=== PATIENT | female | born 1980 | race Caucasian/White ===

== ENCOUNTER 2019-03-13 22:07 | Inpatient (IN) | payer MEDICAID ==
[~2019-03-13] VITALS: Ht 172.7 cm; Wt 101.2 kg
[2019-03-13 22:52] VITALS: BP 133/76; PULSE 89; RESP 18
[2019-03-13] MEDS ORDERED: LACTATED RINGER'S 1,000 ML IV PRN (22:53)
[2019-03-13] MEDS ORDERED: LACTATED RINGER'S 1,000 ML IV SCH (22:53)
[2019-03-13] MEDS ORDERED: OXYTOCIN 30 UNITS/LR 500 ML IV PRN (23:00)
[2019-03-13] MEDS ORDERED: LIDOCAINE 1% (MPF) 30 ML INJ INJ PRN (23:00)
[2019-03-13] MEDS ORDERED: CARBOPROST 250 MCG INJ IM PRN (23:00)
[2019-03-13] MEDS ORDERED: METHYLERGONOVINE 0.2 MG INJ IM PRN (23:00)
[2019-03-13] MEDS ORDERED: MISOPROSTOL 200 MCG TAB PR PRN (23:00)
[2019-03-13] MEDS ORDERED: OXYTOCIN 30 UNITS/LR 500 ML IV SCH (23:00)
[2019-03-13] MEDS ORDERED: BUTORPHANOL 2 MG INJ IV PRN ×2 (23:00)
[2019-03-13] MEDS ORDERED: MINERAL OIL LIGHT 10 ML VIAL TOP ONE (23:00)
[2019-03-13] MEDS ORDERED: IBUPROFEN 600 MG TAB PO PRN (23:00)
--- NOTE | 2019-03-13 23:49 | TRIAGE ---
OB Triage Datetime Report Generated by CPN: 03/13/2019 23:49 Datetime: 03/13/2019 22:46 Stage of : OB Triage Labor Evaluation Frequency: 2-5 Monitor Mode: External Duration (sec)2399: 60 Quality: Moderate Pattern: Normal: <= 5 Contractions in 10 Minutes Resting Tone Hatley: Relaxed Heart Rate FHR Baseline Rate: 130 Monitor Mode: External US FHR Baseline Changes: No Baseline Change Variability: Moderate 6-25 bpm Accelerations: 15X15 Decelerations: None Category: Category I Pain Assessment Pain Scale: 6 Pain Presence: Intermittent Pain Type: Contraction Pain Location: Abdomen Vaginal Exam Dilatation (cms): 4.0 Effacement (%): 70 Station: -2 Exam By: Nicole Tineo Membrane Status: Intact Vaginal Bleeding: Scant Cervix, Consistency: Soft Cervix, Position: Posterior Presentation 'A': Cephalic Datetime: 03/13/2019 22:25 Time of Arrival: 03/13/2019 21:57 EGA: 40.0 Arrived By: Ambulatory Arrived From: Home Chief Complaint: c/o ucs Movement: Present Contractions: Irregular Time Contractions Began: 03/13/2019 20:00 Contractions: q30 Rupture of Membranes: Denies Vaginal Bleeding: None Vaginal Discharge: Denies Recent Sexual Intercouse: Denies Abdominal Trauma: Not Applicable Patient Complaints: Contractions Time Provider Notified: 03/13/2019 22:50 Provider Notified: Dr Yanes Initial Plan: VIDAL SINGH
--- NOTE | 2019-03-14 00:45 | HP ---
Date/Time of Note Date/Time of Note DATE: 03/14/19 TIME: 00:39 OB - History Hx of Present Free Text/Dictation late entry note for exam done for 03/13/2019 Chief Complaint: labor pain Estimated Due Date: Mar 13, 2019 : 7 Para: 4 Spontaneous : 2 Therapeutic : 0 Other Concerns: 38-year-old G7, P4 with IUP at 40 weeks with care with [facility] presented with a complaint of uterine contractions and was noted to be in labor. She denies any leaking of fluid, vaginal bleeding or decreased movement. Patient declines having epidural. Antepartum course was complicated by history of hemophilia in 1 of her children. Child is a boy. Patient reports family history of hemophilia in her grandfather and cousin. Patient reports her kids never had any blood transfusion but has easy bruising. with a new partner. Patient had not done genetic testing or carrier screening testing of her partner. Current has a male fetus. She was noted to have regular contractions every 3 to 4 minutes. NST was category 1. Past Family/Social History * Past Medical, Surgical, Family and Obstetric Histories reviewed from chart. Blood Type: O+ Rubella: unknown RPR/VDRL: Negative GBS Status: Negative HBsAG: Negative OB Admission Exam Vital Signs Vital Signs Vital Signs Date Temp Pulse Resp B/P (MAP) Pulse Ox O2 O2 Flow FiO2 Time Delivery Rate 03/13/19 98.3 89 18 133/76 Room Air 22:52 (95) Physical Exam HEENT: WNL Heart: Rhythm Normal Lungs: Clear Abdomen: WNL Reflexes: Normal Cervical Dilatation: 4cm Effacement: 75% Station: -2 Membranes: Intact Heart Rate: 120's Accelerations: Accelerations Present Decelerations: No Decelerations Varibility: Moderate Contractions on Admission: < 5 Minutes Apart Intensity: Firm Last 72 hours Lab Results CBC & BMP 03/14/19 00:03 OB Assessment/Plan Reason for admission: active labor Other Assessment: IUP at 40 weeks Active labor GBS negative History of hemophilia and 1 of her children as well as family history of hemophilia in her grandfather and cousin. with a new partner. Partner has not done any carrier screening test. Baby is a male Patient declined epidural. Desires only IV pain medication if needed Admit the patient to labor and delivery Follow-up of labor care and anticipate . Clothes Model will be notified about family history of hemophilia Baby is male. Consider less invasive procedure. Caution during delivery avoiding of using FSE of vaccum. Anticipate Plan Of care discussed with RN and with the patient RUFUS BROWN MD Mar 14, 2019 00:45
[2019-03-14] MEDS: OXYTOCIN 30 UNITS/LR 500 ML IV SCH ×2 (06:22→06:27)
[2019-03-14] MEDS ORDERED: OXYTOCIN 30 UNITS/LR 500 ML IV SCH (06:44)
--- NOTE | 2019-03-14 06:44 | LDN ---
Date/Time of Note Date/Time of Note DATE: 03/14/19 TIME: 06:42 Delivery Summary March 14, 2019 Weeks of Gestation 40 weeks and 1 day Placenta Delivered: Spontaneously Meconium: none Episiotomy: No Indication for episiotomy N.A Perineal laceration: 1 Laceration repair: first degree perineal laceration repaired using 3-0 chromic Anesthesia type: None Estimated blood loss: 400 Sponge & Needle done & correct: Yes All needle counts correct: Yes Any foreign bodies felt in the: No Infant Delivery Information Sex Sex: male Apgars 1 Minute: 8 5 Minute: 9 Suctioning Nose & mouth suctioned at abrahan: Yes Delee suction performed: Yes Umbilical Cord Umbilical cord with: 3 Vessels Cord presentations: nuchal cord Nuchal cord present X: 1 Cord Blood was obtained: Yes Mother & Baby Disposition Disposition Placenta delvered complete. Fundus was firm at the end of the delivery Hemostasis complete Patient tolerated the procedure well No complication RUFUS BROWN MD Mar 14, 2019 06:44
[2019-03-14] MEDS ORDERED: OXYTOCIN 30 UNITS/LR 500 ML IV PRN (07:00)
[2019-03-14] MEDS ORDERED: NACL 0.9% 3 ML SYG IV SCH (07:00)
[2019-03-14] MEDS ORDERED: METHYLERGONOVINE 0.2 MG INJ IM PRN (07:00)
[2019-03-14] MEDS ORDERED: MISOPROSTOL 200 MCG TAB PR PRN (07:00)
[2019-03-14] MEDS ORDERED: ZOLPIDEM 5 MG TAB PO PRN (07:00)
[2019-03-14] MEDS: IBUPROFEN 600 MG TAB PO SCH ×4 (07:00→23:38)
[2019-03-14] MEDS ORDERED: HYDROCODONE/APAP (5/325) TAB PO PRN (07:00)
[2019-03-14] MEDS ORDERED: WITCH HAZEL/GLYCERIN PAD PR PRN (07:00)
[2019-03-14] MEDS ORDERED: LANOLIN HPA 1 PKT TOP PRN (07:00)
[2019-03-14] MEDS ORDERED: CARBOPROST 250 MCG INJ IM PRN (07:00)
[2019-03-14] MEDS ORDERED: ONDANSETRON 4 MG INJ IV PRN (07:00)
[2019-03-14] MEDS ORDERED: DIPHENHYDRAMINE 25 MG CAP PO PRN (07:00)
[2019-03-14 08:00] VITALS: BP 105/50; PULSE 76; RESP 18
[2019-03-14] MEDS: SENNA/DOCUSATE NA (8.6MG/50MG) TAB PO SCH ×2 (09:52→23:38)
[2019-03-14 12:46] VITALS: BP 116/67; PULSE 74; RESP 18
[2019-03-14 16:00] VITALS: BP 106/61; PULSE 74; RESP 16
[2019-03-14 20:00] VITALS: BP 109/59; PULSE 83; RESP 18
[2019-03-15 04:00] VITALS: BP 112/56; PULSE 76; RESP 18
[2019-03-15] MEDS: IBUPROFEN 600 MG TAB PO SCH ×3 (06:02→17:38)
[2019-03-15 08:00] VITALS: BP 114/61; PULSE 79; RESP 18
[2019-03-15] MEDS: SENNA/DOCUSATE NA (8.6MG/50MG) TAB PO SCH ×2 (08:50→21:36)
[2019-03-15 16:00] VITALS: BP 107/54; PULSE 71; RESP 16
--- NOTE | 2019-03-15 17:01 | DS ---
Date/Time of Note Date/Time of Note DATE: 03/15/19 TIME: 17:00 Obstetrical Discharge Record Final Diagnosis Final Diagnosis: Term delivered Vaginal Delivery Obstetrical Delivery: Spontaneous Complications Augmentation: No Induction: No Rupture of Membranes: No Condition on Discharge Physical Assessment Voiding: Yes Bowel Movement: Yes Breast: Soft, non-tender, Filling Fundus: Firm Abdomen and Incision: soft, not tender Calf Tenderness: No Patient Condition: Good VIRY ANTOINE MD Mar 15, 2019 17:01
[2019-03-15 20:30] VITALS: BP 132/76; PULSE 81; RESP 20
[2019-03-16] MEDS: IBUPROFEN 600 MG TAB PO SCH ×3 (00:44→12:15)
[2019-03-16 04:15] VITALS: BP 116/73; PULSE 76; RESP 18
[2019-03-16 08:00] VITALS: BP 116/67; PULSE 70; RESP 18
[2019-03-16] MEDS: SENNA/DOCUSATE NA (8.6MG/50MG) TAB PO SCH (08:35)
[2019-03-16] MEDS ORDERED: VARICELLA VACCINE LIVE/PF 1,350 UNIT/0.5 ML ML SC* ONE (09:00)
[2019-03-16] MEDS ORDERED: MEASLES,MUMPS,RUBELLA VACCINE INJ SC* ONE (09:00)
[2019-03-16] MEDS ORDERED: DIPHTH/TET/ACEL PERTUSS (ADULT) 0.5 ML VIAL IM* ONE (09:00)
--- NOTE | 2019-03-17 16:33 | DELSUM ---
Delivery Summary A-C Datetime Report Generated by CPN: 03/17/2019 16:32 DELIVERY PERSONNEL Butter Liquefier: Ricafrente, Sparkle MATERNAL INFORMATION Delivery Anesthesia: Local Medications in Delivery: LR 500 + 30 units pitocin Delivery QBL (ml): 400 Placenta Cultured: No Maternal Complications: None LABOR SUMMARY EDC: 03/13/2019 00:00 No. Babies in Womb: 1 Attempted: No Labor Anesthesia: IV Sedation LABOR INFORMATION Reason for Induction: Not Applicable Onset of Labor: 03/13/2019 20:00 Complete Dilatation: 03/14/2019 06:01 Other Ripening Agents: N/A Oxytocin: N/A Group B Beta Strep: Negative Antibiotics # of Doses: 0 Steroids Given: None Reason Steroids Not Administered: Not Applicable MEMBRANES Membranes Rupture Method: Spontaneous Rupture of Membranes: 03/14/2019 06:01 Length of Rupture (hr): 0.08 Amniotic Fluid Color: Clear Amniotic Fluid Amount: Moderate Amniotic Fluid Odor: Normal STAGES OF LABOR Stage 1 hr: 10 Stage 1 min: 1 Stage 2 hr: 0 Stage 2 min: 5 Stage 3 hr: 0 Stage 3 min: 3 Total Time in Labor hr: 10 Total Time in Labor min: 9 VAGINAL DELIVERY Episiotomy: None Laceration Extension: First Degree Laceration Type: Perineal Laceration Repair: Yes Initial Vag Sponge Count: 10 Final Vag Sponge Count: 10 Initial Vag Sharps Count: 2 Final Vag Sharps Count: 2 Sponge Count Correct: Yes Sharps Count Correct: Yes BABY A INFORMATION Infant Delivery Date/Time: 03/14/2019 06:06 Method of Delivery: Vaginal Born in Route : No : N/A Forceps: N/A Vacuum Extraction: N/A Shoulder Dystocia : N/A SHOULDER DYSTOCIA BABY A Infant Delivery Date/Time: 03/14/2019 06:06 PRESENTATION/POSITION BABY A Presentation: Cephalic Cephalic Presentation: Vertex Vertex Position: Left Occipital Anterior Breech Presentation: N/A PLACENTA INFORMATION BABY A Placenta Delivery Time : 03/14/2019 06:09 Placenta Method of Delivery: Spontaneous Placenta Status: Delivered SCORES BABY A Heart Rate 1 min: >100 bpm Resp Effort 1 min: Good Cry Reflex Irritability 1 min: Cough/Sneeze/Pulls Away Muscle Tone 1 min: Active Motion Color 1 min: Blue/Pale Resuscitation Effort 1 min: Tactile Stimulation SCORE 1 MIN: 8 Heart Rate 5 min: >100 bpm Resp Effort 5 min: Good Cry Reflex Irritability 5 min: Cough/Sneeze/Pulls Away Muscle Tone 5 min: Active Motion Color 5 min: Body Rossie, Extremit Blue Resuscitation Effort 5 min: Tactile Stimulation SCORE 5 MIN: 9 INFORMATION BABY A Gestational Age at Delivery: 40.1 Gestational Status: Full Term- 39- 40.6 Weeks Infant Outcome : Liveborn Infant Condition : Stable Infant Sex: Male IDENTIFICATION/MEDS BABY A ID Band Number: [id number] ID Band Location: Right Leg; Left Arm Sensor Applied: Yes Sensor Number: [id number] Sensor Location : Cord Clamp Vitamin K Given : Not Given Erythromycin Given: Not Given WEIGHT/LENGTH BABY A Birthweight (gm): 3970 Weight (lb): 8 Weight (oz): 12 Length (in): 20.00 Length (cm): 50.80 CORD INFORMATION BABY A No. Cord Vessels: 3 Nuchal Cord : Around Neck x1, Loose Nuchal Cord- Other: 0 True Knot: 0 Cord Blood Taken: Yes Banking/Donate Info: No Suction: Mouth; Nose ASSESSMENT BABY A Complications: None Physical Findings at Delivery: Within Normal Limits Physical Findings- Other: 10ml mucous suctioned Respirations: Appears Normal Wire Repairer/ALS Called : No Care By: Jan Salazar RN Transferred To: Remains with Mother
== END 2019-03-16 16:32 | disposition home or self-care (01) | DRG 807 ==
LOC: OBT 22:07 → L-D 22:07 → OBT 22:50 → PP1 03-14 16:00
PROVIDERS: ADMIT Specialist; ATTEND Specialist
PROC: 10E0XZZ Delivery of Products of Conception, External Approach (ICD-10-PCS; principal; 2019-03-13)
PROC: 0HQ9XZZ Repair Perineum Skin, External Approach (ICD-10-PCS; 2019-03-13)
DX: O70.0 First degree perineal laceration during delivery (principal); Z37.0 Single live birth; O69.81X0 Labor and delivery complicated by cord around neck, without compression, not applicable or unspecified; Z3A.40 40 weeks gestation of pregnancy; Z83.2 Family history of diseases of the blood and blood-forming organs and certain disorders involving the immune mechanism
CPT/HCPCS: 81001; 85014; 85018; 85025; 85610; 85730; 86592; 86850; 86900; 86901; 87340; 90716; G0463; J0595; J2590; J7120